=== PATIENT | female | born 1990 | race Hispanic/Latino ===

== ENCOUNTER 2019-05-27 19:06 | Emergency (ER) | payer SELFPAY ==
[2019-05-27] MEDS ORDERED: ACETAMINOPHEN 325 MG TAB PO ONE (19:15)
[2019-05-27] MEDS ORDERED: ACETAMINOPHEN 325 MG TAB ONE (19:22)
[2019-05-27] MEDS ORDERED: IBUPROFEN 600 MG TAB PO NR (19:30)
[2019-05-27 20:05] LABS: STREPTOCOCCUS GRP A ANTIGEN NEGATIVE (NEGATIVE)
[2019-05-27 20:06] LABS: INFLUENZAE A&B ANTIGEN (RAPID) POSITIVE FLU A (NEGATIVE)
[2019-05-27 20:15] VITALS: BP 142/68
== END 2019-05-27 20:17 | disposition home or self-care (01) ==
LOC: ER 19:06
DX: R50.9 Fever, unspecified (principal); J11.1 Influenza due to unidentified influenza virus with other respiratory manifestations
CPT/HCPCS: 83518; 87400; 99282